=== PATIENT | female | born 1990 | race Caucasian/White ===

== ENCOUNTER → 2019-08-22 10:37 | Outpatient (CLI) | payer MEDICAID, SELFPAY ==
[2019-08-22 10:18] VITALS: BMI 22.8
[2019-08-22 12:20] LABS: Absolute Lymphocyte Count 1.85 X10^3/uL (0.83-4.51); Absolute Neutrophil Count 4.2 X10^3/uL (2.0-7.7); Basophil# 0.06 X10^3/uL; Basophil% 0.9 % (0-1); Eosinophil# 0.06 X10^3/uL; Eosinophils% 0.9 % (0-5); Hemoglobin 13.4 g/dL (12.0-15.0); Lymphocyte # 1.85 X10^3/ul (4.0); Lymphocyte % 27.7 % (19-41); Mean Corp Hgb Conc 31.9 g/dL (32-36); Mean Corpuscular Hgb 26.5 pg (27.0-32.0); Mean Corpuscular Volume 83.2 fL (81-99); Mean Platelet Vol. 10.5 fl (6.2-12.0); Monocyte# 0.46 X10^3/uL; Monocyte% 6.9 % (0-10); NRBC Flagged by Analyzer 0 % (0-5); Neutrophil # 4.21 X10^3/uL (2.7-7.7); Neutrophil % 63.2 % (47-70); Platelet Count 221 K/mm3 (150-450); RBC Distribution Width CV 13.2 % (11.6-14.6); RBC Distribution Width SD 40.2 fl (35.1-43.9); Red Blood Count 5.05 M/mm3 (4.2-5.4); White Blood Count 6.7 K/mm3 (4.4-11.0)
[2019-08-22 12:45] LABS: ALB/GLOB Ratio 1.1 RATIO (0.9-2.4); AST(SGOT) 8 U/L (15-37); Alanine Aminotransfer ALT/SGPT 17 U/L (13-56); Albumin, Serum 3.9 g/dL (3.2-5.0); Alkaline Phosphatase 51 U/L (45-117); Anion Gap 6 (5-15); BUN 10 mg/dL (7-18); BUN/Creat Ratio 11.8 RATIO (10-20); Calcium,Total 8.4 mg/dL (8.5-10.1); Chloride 110 mmol/L (98-107); Creatinine, Serum 0.85 mg/dL (0.55-1.02); EST Glomerular Filtration Rate 83 mL/min (>60); Est Glom Filt Rate - Afr Amer 100 mL/min (>60); Globulin 3.6 g/dL (2.2-4.2); Glucose 86 mg/dL (74-106); Protein, Total 7.5 g/dL (6.4-8.2); Sodium Level 139 mmol/L (136-145); T4 Free Direct 1.01 ng/dL (0.76-1.46); Thyroid Stim Hormone (TSH) 1.03 uIU/mL (0.358-3.74)
== END ==
PROVIDERS: PCP Internal Medicine; Visit Provider Internal Medicine
DX: F32.9 Major depressive disorder, single episode, unspecified (principal); F41.9 Anxiety disorder, unspecified
CPT/HCPCS: 36415; 80053; 84439; 84443; 85025

== ENCOUNTER → 2020-04-23 10:30 | Outpatient (CLI) | payer MEDICAID, SELFPAY ==
[2020-04-23 10:06] VITALS: BMI 22.8
[2020-04-23 10:33] LABS: Mucous, Urine 0 SEEN /hpf (<or=2+); White Blood Cells 0 SEEN /hpf (0-5)
[2020-04-23 12:18] LABS: Absolute Lymphocyte Count 2.39 X10^3/uL (0.83-4.51); Absolute Neutrophil Count 4.7 X10^3/uL (2.0-7.7); Basophil# 0.06 X10^3/uL; Basophil% 0.8 % (0-1); Eosinophil# 0.13 X10^3/uL; Eosinophils% 1.6 % (0-5); Hematocrit 40.5 % (37-47); Hemoglobin 12.5 g/dL (12.0-15.0); Lymphocyte # 2.39 X10^3/ul (4.0); Lymphocyte % 30.1 % (19-41); Mean Corp Hgb Conc 30.9 g/dL (32-36); Mean Corpuscular Hgb 26.2 pg (27.0-32.0); Mean Corpuscular Volume 84.9 fL (81-99); Mean Platelet Vol. 10.1 fl (6.2-12.0); Monocyte# 0.71 X10^3/uL; Monocyte% 8.9 % (0-10); NRBC Flagged by Analyzer 0 % (0-5); Neutrophil # 4.65 X10^3/uL (2.7-7.7); Neutrophil % 58.5 % (47-70); Platelet Count 285 K/mm3 (150-450); RBC Distribution Width CV 13.9 % (11.6-14.6); RBC Distribution Width SD 43.4 fl (35.1-43.9); Red Blood Count 4.77 M/mm3 (4.2-5.4)
[2020-04-23 12:25] LABS: Internal QC Validated? YES +Cl - CLEAR BKGD; Pregnancy, Serum, hCG Quali. NEGATIVE Negative
[2020-04-23 12:35] LABS: Color, Urine Yellow (Yellow); Glucose, Dipstick Normal (Normal); Ketone-Dipstick Negative (Negative); Leukocyte Esterase-Dipstick Negative /ul (Negative); Nitrite-Dipstick Negative (Negative); Occult Blood-Urine 250 /ul (Negative); Protein-Dipstick Negative (Negative); Urine Bilirubin Dipstick Negative (Negative); Urine Clarity Sl. Cloudy (Clear); Urine Urobilinogen Normal (Normal)
[2020-04-23 12:41] LABS: AST(SGOT) 10 U/L (15-37); Alanine Aminotransfer ALT/SGPT 18 U/L (13-56); Albumin, Serum 3.7 g/dL (3.2-5.0); Alkaline Phosphatase 69 U/L (45-117); Anion Gap 6 (5-15); BUN 15 mg/dL (7-18); BUN/Creat Ratio 18.5 RATIO (10-20); Calcium,Total 8.4 mg/dL (8.5-10.1); Chloride 108 mmol/L (98-107); Creatinine, Serum 0.81 mg/dL (0.55-1.02); EST Glomerular Filtration Rate 87 mL/min (>60); Est Glom Filt Rate - Afr Amer 105 mL/min (>60); Ferritin 14 ng/mL (8-252); Globulin 3.7 g/dL (2.2-4.2); Glucose 95 mg/dL (74-106); Iron 110 ug/dL (50-170); Iron Binding Capacity,Total 353 ug/dL (250-450); PERCENT IRON SATURATION 31.2 % (15.0-55.0); Potassium 4.1 mmol/L (3.5-5.1); Protein, Total 7.4 g/dL (6.4-8.2); Sodium Level 139 mmol/L (136-145); Thyroid Stim Hormone (TSH) 2.78 uIU/mL (0.358-3.74)
[2020-04-23 12:47] LABS: Bacteria 1+ /hpf (None Seen); Red Blood Cells-Urine 25-50 SEEN /hpf (0-5); Squamous Epithelial Cells - UA 0-5 SEEN /hpf (5-10)
== END ==
PROVIDERS: PCP Internal Medicine; Referring Provider Nurse Practitioner Family; Visit Provider Nurse Practitioner Family
DX: R10.9 Unspecified abdominal pain (principal); K25.9 Gastric ulcer, unspecified as acute or chronic, without hemorrhage or perforation; R53.83 Other fatigue; D64.9 Anemia, unspecified; R35.0 Frequency of micturition
CPT/HCPCS: 36415; 80053; 81001; 82728; 83540; 83550; 84443; 84703; 85025; 87086; 87088

== ENCOUNTER 2020-10-15 09:00 | Outpatient (RCR) | payer MEDICAID, SELFPAY ==
[2020-10-03 09:18] VITALS: BMI 22.9
--- NOTE | 2020-10-15 09:00 | BH.COMM ---
Communication Note - Communication with Client Communication Note: Met with patient to complete inital paperwork. No significant changes since pre-admission screening. Completed [place] Suicide screening. Low risk.
--- NOTE | 2020-10-15 09:00 | BH.COMM_ITS ---
Communication Note - Communication with Client Communication Note: Met with patient to complete inital paperwork. No sign ificant changes since pre-admission screening. Completed [place] Suicide screening. Low risk.
--- NOTE | 2020-10-15 09:05 | BH.SGPN.GN ---
Behaviors/Verbalizations/Mental Status: [] Eye contact is good. Motor activity is appropriate. Appearance is disheveled. Speech is Appropriate. Mood is anxious. Affect is congruent. Thoughts are linear and logical. No evidence of psychosis. Reviewed daily check in sheet and no reports of suicidal ideations or intent. Client Response/Progress/Benefit: [] Pt was attentive during group discussion and participated at times. Shared with the group that this is her first day in IOP. Reports that she entered the program to work on her anxiety and depression. Shared that a friend recently which has been difficult. 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 No progress noted as this was pt's first day. Will continue in IOP to prevent decompensation, improve functioning , increase healthy coping, and stabilize mood. Narrative Note: []
--- NOTE | 2020-10-15 10:10 | BH.SGPN.GN ---
Behaviors/Verbalizations/Mental Status: []]Eye contact is good. Motor activity is appropriate. Appearance is casual. Speech is Appropriate. Mood is anxious and depressed. Affect is constricted. Thoughts are linear and logical. No evidence of psychosis. Client Response/Progress/Benefit: []Pt mostly passive participant AEB pt only providing input when elicited by therapist, however willing to complete worksheet and appeared to listen to others. Pt appeared to connect with others during discussion about impact of unhealthy anger responses. Shared her emotions underlying anger include: apathy, crying, shut down, isolate and bottle it up. Pt stated she fears the consequences if she were to explode so she internalizes anger. Pt identified the following ways she expresses anger: low self-esteem, betrayal, trauma, and violence from others. Pt seemed to benefit from increased awareness of how unmanaged anger can impact self and others. Pt's first day. Pt to continue IOP to increase healthy coping skills, improve daily functioning and prevent decompensation. Narrative Note: []
--- NOTE | 2020-10-15 11:12 | BH.SGPN.GN ---
Behaviors/Verbalizations/Mental Status: []Client alert and oriented, casually dressed and groomed. Eye contact good. Motor activity appropriate. Speech within normal limits. Affect constricted. mood depressed and anxious. Thoughts linear, logical, no signs of hallucinations or delusions. Client Response/Progress/Benefit: []Pt was engaged throughout AEB contributing to group discussion and self-reflection. Pt contributed as the group provided examples of physical warning signs for anger and identified personal warning signs. These included: shaking, red ears, and digging her nails into her hands. Pt contributed as group brainstormed healthy coping skills for better managing anger which included: music, walking/exercise, opposite action, identifying distortions, DDD, thinking of the consequences, and meditation. Pt appeared to benefit from identifying different techniques to manage anger as well as gaining awareness of potential consequences of unmanaged anger. Pt selected using a weighted blanket and DDD as coping skills pt would like to try to regulate anger. Client?s first day of IOP tx. Will continue IOP to prevent decompensation, reduce anxiety, and increase knowledge of healthy coping skills. Narrative Note: []
--- NOTE | 2020-10-17 09:30 | BH.NA_ITS ---
Physical Data - Vital Signs Pulse Rate: 92 Blood Pressure: 140/92 - Height/Weight Height: 1.63 m Weight:: 68.039 kg Weight in Pounds: 150.0 lbs Current Medication Compliance - Medication Compliance Do you take your medication as prescribed?: Yes Nutritional History - Appetite Nutritional Instructions:: If client shows signs of a swallowing problem, weight change of 10 pounds or more in the last month, or is on a diabetic diet, the physician will review and request a dietitian consult, as appropriate. All unintentional weight loss will be referred to the physician for decision on need for dietitian consult. Describe your appetite:: Good Additional nutritional information:: Client states appetite somewhat increased and reports some weight gain. Functional Assessment - Sleep Pattern Describe any problems with sleeping: Client states for the last several months, she has been sleeping about 12 hours per day. 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 - Activities Motor Activity:: Functional Sensory/Communication Assess - Communication Problems Do you have difficulty understanding what people are saying?: No What is your primary language?: [place] Medical Problems/History - Genitourinary Conditions Genitourinary: Other (See comments) Comments:: kidney stone - Gastrointestinal Conditions Gastrointestinal: Other (See comments) Comments:: history of bleeding ulcer - Pain Assessment Do you have acute or chronic pain?: No - Family History Family History: Family History (Last Reviewed 10/03/20 @ 09:13 by Lucia Blanco) Mother Diabetes Surgical History - Surgical History Have you had any surgeries? If so, list type and date:: Yes - x3, tubal ligation Substance Abuse - Substance Abuse Please describe substance abuse in the last 30 days:: Client reports social alcohol use. Client states she smokes 3 cigarettes per day currently and states she has been a smoker since the age of 16. Client denies substance use. Client reports drinking many caffienated beverages daily. Mental Status Summary - Mental Status Significant Findings/Observations on Appearance and Mood:: Client is alert and oriented x 4. Client is wearing mask due to Covid19 pandemic. Client is casually groomed. Client makes good eye contact. Client's voice has normal rate and volume. Client appears mildly anxious. Client is cooperative with assessment. 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 Client denies delusions/hallucinations. Client denies SI. Suicide Assessment - Suicidal Ideation Are you currently or have you been suicidal in the past?: No - denies current SI Suicidal Intentional Rating Scale (SIRS): No suicidal thoughts (past or present) Physician Notification: If Active suicidal thoughts/Will not contract for safety is checked, contact physician and document in the Physician Notification section below. Past Psychiatric History - MH Treatment Hx Past Psychiatric Medications:: Lexapro in past and currently Age of first mental health symptoms: Client states she was diagnosed with anxiety and depression around the age of 16. Describe (age, circumstance, etc) any past hospitalizations: None. Current providers for mental health treatment (counselor, psychiatrist, shoe parts caser, etc.): None. Fall Risk Assessment - Age Age: Less than 60 - Mental Status Mental Status: Willing & able to ask for assistance when needed - Physical Status Physical Status: No problems - Impairments Impairments: None - Elimination Elimination: Continent AND independent - Gait or Balance Gait or Balance: Walks independently - Hx of Falls History of falls in the past 6 months: No known history - Medications/Substances Psychotropics:: Antidepressants Medications/substances used within the past 24 hours or ordered to administer: 1-2 of the medications/substances listed above - Total Score Total Points:: 1 RN Summary of Impressions - Impressions Recommendations: Include psychiatric and medical issues, treatment planning recommendations, and discharge planning needs. Impressions: Psychiatric Issues: major depressive disorder, recurrent, severe without psychosis; generalized anxiety disorder; borderline personality disorder - Level of Care How do the client's current symptoms and functional deficits support need for this level of care?: Client was referred to IOP by PCP for worsening anxiety and depression. Client states everytime she goes to PCP office, she had a breakdown in the office and is tearful. Client states for the last several months, she has felt increasingly depressed. Client reports sleeping about 12 hours per day for the last several months. Client states she feels she can't concentrate at work, that she needs to be taught the same things over and over. Client reports crying episodes, decreased motivation, ruminations, irritability, and isolation. Client denies SI. IOP will promote gains and prevent further decompensation while providing social support and skills training.
[2020-10-17 10:59] VITALS: BP 140/92; PULSE 92
--- NOTE | 2020-10-17 11:05 | BH.SGPN.GN ---
Behaviors/Verbalizations/Mental Status: []Client alert and oriented, neatly dressed and groomed. Eye contact good. Motor activity appropriate. Speech within normal limits. Affect constricted, mood dysthymic and anxious. Thoughts linear, logical, no signs of hallucinations or delusions. Client Response/Progress/Benefit: []Client responded well to session AEB taking notes and contributing when prompted. Client listened during psychoeducation on the change process and different emotions in each stage of change. Client identified a change client would like to make to improve mental health which was to ?actually put my mental health first? Client shared she wants to work on this ?because I never have and I always put others first.? Client reports belief she is currently in between the preparation and action stages as client has followed through with attending IOP and taking medications, but client has not yet begun using coping skills outside of IOP. Client identified personal barriers to change and reported she plans to practice calming skills to overcome barriers. Appeared to benefit from identifying what stage of change client is in and identifying strategies to overcome barriers. Will continue IOP tx to prevent decompensation, improve self-care, and increase knowledge of healthy coping skills. Narrative Note: []
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
--- NOTE | 2020-10-17 12:44 | BH.DR.ITP ---
Initial Treatment Plan - Patient Information Visit Information: ADMISSION DATE: EXPECTED LOS: 4-6 weeks - Problems/Symptoms Problem #1:: Depression, increased sleep,hopelessness, worthlessness, guilt, anhedonia Problem #2:: Anxiety Symptom:: Rumination,panic attacks, nightmares, flashbacks, avoidance
--- NOTE | 2020-10-18 09:10 | BH.SGPN.GN ---
Behaviors/Verbalizations/Mental Status: [] Eye contact is good. Motor activity is appropriate. Appearance is casual. Speech is Appropriate. Mood is depressed. Affect is flat. Thoughts are linear and logical. No evidence of psychosis. Reviewed daily check in sheet and no reports of suicidal ideations or intent. Client Response/Progress/Benefit: [] Pt was an active participant in group discussion. Emotion for today is positive. Accomplished tasks yesterday which she has been avoiding. Did not make phone call that she had set as a goal. Currently has a friend on the burn unit due to suicide attempt and is hesitant to reach out to him. More engaged in group discussions. Related to peer discussing feeling out of place at family events. Attentive. Progress noted. Benefited from group support, encouragement, and feedback. Will continue in IOP to prevent decompensation, increase healthy coping, and improve functioning. Narrative Note: []
--- NOTE | 2020-10-18 10:20 | BH.SGPN.GN ---
Behaviors/Verbalizations/Mental Status: []Client alert and oriented, neatly dressed and groomed. Eye contact good. Motor activity appropriate. Speech within normal limits. Affect constricted, mood depressed, anxious, irritable. Thoughts linear, logical, no signs of hallucinations or delusions. Client Response/Progress/Benefit: []Client active participant as shown by active listening and contributing to discussion. Client contributed to the discussion of self-care and the consequences of not practicing self-care. Client stated she struggles with self-care and reported ?as a parent you can?t put yourself first.? Client helped the group discuss benefits of self-care which included; improved mood, better mental health, and better relationships. Client participated in the discussion of the common myths about self-care. Client participated in the discussion on debunking of these myths. Client?s group challenged the myths: self-care should be fun, self-care is selfish, and self-care just personal hygiene. Client was receptive to challenging her perspective on the myths of self-care during small group. Client seemed to benefit from increased awareness of the importance of self-care and challenging common myths that prevent practicing self-care. Will continue IOP tx to prevent decompensation, increase knowledge of healthy coping skills, and improve daily functioning. Narrative Note: []
--- NOTE | 2020-10-18 10:41 | BH.MDN ---
Multi-Disciplinary Note - Note 45-min Individual Time Started:: 11:45 Date: 10/18/20 Purpose of session/treatment goals addressed:: Met with pt to develop treatment plan. Pt also had panic attack during 3rd group which we processed. Eye Contact:: Fair Motor Activity:: Restless Appearance:: Casual Speech:: Appropriate Mood:: Anxious Affect:: Congruent Thoughts:: Linear, Logical, No evidence of hallucinations/delusions noted Staff Interventions:: Utilized ND techniques to elicit change behaviors. Began to develop treatment plan. Provided education on cognitive distortions and mistaken beliefs. Given homework to complete thought record. Client Response:: Pt was tearful stating that she struggled with group activity which involved trying to focus on several tasks at once. States I failed ... I can't concentrate on several things at once. She processed the event and through prompting was able to identify her thoughts which led to panic. Currently limited coping skills to utilize to minimize impact of thoughts. Has left several events and jobs in the past to avoid anxiety and failing. I've quit things where I didn't feel like I was the best. This has impacted her relationships and the ability to have consistent employment. When discussing goals she reports that she wants to decrease the frequency of panic attacks and feeling of being overwhelmed. Also stating that she feels like she is on an emotional rollercoaster which she wants to stop. Open to education on CBT, cognitive distortions, and mistaken beliefs. Risks/Concerns:: Denies SI, plan, or intent. No risks of concerns noted. Progress Toward Goals/Plan:: Limited progress noted today however appears to have increased insight into the impact of her thinking on her mood. Previously believed she had no control over her responses. Long history of avoiding or isolating when confronted with anything that is anxiety provoking or causes distress. Unrealistic expectations regarding never failing or making a mistake. Also reported poor communication with current fiance which often leads to us breaking up at least once every couple months. Plan is to continue in IOP to increase healthy coping and prevent decompensation. Time Stopped:: 12:30
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
--- NOTE | 2020-10-18 10:41 | BH.MTP ---
Master Treatment Plan - Patient Information Program Physician:: Sandra Landin Primary Therapist:: Del Sibley - Psychiatric Diagnoses Psychiatric Diagnoses:: Major Depressive Disorder, recurrent, severe, w/o psychosis F33.2 Diagnosis Code(s):: F33.2 - Estimated LOS Estimated LOS (in weeks):: 6 Problem/Goal #1 - Problem/Goal #1 Stated Goal:: Client will decrease depressive symptoms, anger/irritability, hopelessness, and anhedonia through Intensive Outpatient Program. Will show a decrease in depression scores on the DSM5 cross-cutting scales. Description of Barriers: Inconsistent attendance, limited motivation, guarded Functional Impact: Pervasive depression, anhedonia, and hopelessness has caused significant impract on pt's relationships and overall functinoing (pt sleeps a majority of the day to cope) - Objectives Objective #1 Stated Objective: Client will identify and replace 2-3 negative thinking patterns that mediate feelings of hopelessness and helplessness. Will complete a thought record and practive reframing thoughts. Interventions: Through groups and individual therapy, pt. will be provided with education on cognitive distortions, mistaken beliefs, and identifying and combating negative self-talk. Therapist will help pt. explore connection between thoughts, feelings, and actions. Discharge Criteria: Pt. will be able to identify 2-3 negative thinking patterns and be able to effectively stop, challenge, or cope with those negative thoughts. Target Date: 11/29/20 Review Date: 11/15/20 Problem/Goal #2 - Problem/Goal #2 Stated Goal:: Client will reduce overall frequency, intensity, and duration of the anxiety so that daily functioning is not impaired. Will show a decrease in anxiety on the DSM5 cross-cutting scales. Description of Barriers: Inconsistent attendance, limited motivation, guarded Functional Impact: Anxiety has impacted pt in social situations as well as at work. Reports leaving many jobs due to anxiety. - Objectives Objective #1 Stated Objective: Client will learn and implement 2-3 calming skills to reduce overall anxiety and manage anxiety symptoms. Interventions: Through individual and group counseling pt. will be provided with education on anxiety and effective coping skills. Will explore more in-depth with pt. cause and triggers to anxiety as well as obstacles to overcoming anxiety Discharge Criteria: Client will have achieved this goal when can verbalize at least 2 calming skills and implement those skills on a consistent basis. Target Date: 11/29/20 Review Date: 11/15/20
--- NOTE | 2020-10-22 09:30 | BH.COMM ---
Communication Note - Communication with Client Communication Note: Pt did not show for IOP this AM. Reached out and left message.
--- NOTE | 2020-10-24 09:05 | BH.SGPN.GN ---
Behaviors/Verbalizations/Mental Status: []Client alert and oriented, neatly dressed and groomed. Eye contact fair. Motor activity appropriate. Speech within normal limits. Affect constricted, mood anxious and agitated. Thoughts linear, logical, no signs of hallucinations or delusions. Reviewed client?s symptom tracker, no risk for suicidal ideation, plan, or intent as of 10/24/20 Client Response/Progress/Benefit: []Client responded well to session, receptive to encouragement and feedback. Client reports feeling anxious this morning and shared that an activity in group last week really set me back. Client stated her sleep was impacted and I beat myself up because it was over something so small. Field Crop Harvest Contractor encouraged client to use self-compassion and reflect on the positive that she returned to IOP despite anxiety. Client shared several positives including buying a journal, driving in the snow, and scheduling a nail appointment for self-care. Client reports we know how I feel about self-care so this is a significant step for client. Appeared to benefit from group support and reflecting on resiliency traits. Will continue IOP tx to prevent decompensation, improve mood stability, and reduce negative thinking that reinforces anxiety. Narrative Note: []
--- NOTE | 2020-10-24 10:15 | BH.SGPN.GN ---
Behaviors/Verbalizations/Mental Status: [] Eye contact is good. Motor activity is appropriate. Appearance is casual. Speech is Appropriate. Mood is anxious. Affect is congruent. Thoughts are linear and logical. No evidence of psychosis. Client Response/Progress/Benefit: [] Pt was an active participant in group discussion and activity. Attentive during psychoeducation and discussion on famous people who have overcome set-backs and failures. Participated with peers in coming up with descriptions of failure which included; messing up, not accomplishing a goal, making the wrong choice, and giving up. Group discussed the impact of fear of failure stating that it can lead to; inaction, increased anxiety, self-fulfilling prophecy, and it can keep them from reaching goals or even trying. Pt benefited from group as evidenced by increased insight and awareness of the impact of fear of failure on mood and actions. Will continue in IOP to increase healthy coping, decrease depressive symptoms, and improve functioning. Narrative Note: []
--- NOTE | 2020-10-24 16:31 | BH.MDN ---
Multi-Disciplinary Note - Note 30-min Individual Time Started:: 11:15 Date: 10/24/20 Purpose of session/treatment goals addressed:: Pt reported depressive epsiode which lasted over the weekend and resulted in missing IOP on 09/2820. Adressed goals 1 and 2 Eye Contact:: Fair Motor Activity:: Restless Appearance:: Casual Speech:: Appropriate Mood:: Anxious, Depressed Affect:: Congruent Thoughts:: Linear, Logical, No evidence of hallucinations/delusions noted Staff Interventions:: Processed emotions and events this past week. Provided education on CBT techniques. Client Response:: Pt reports that she had been significantly depressed since 10/18/20. States that she missed IOP on 10/22/20 because I slept all day. Depressed, drained, and feels that life is pushing her down. She was able to write down some of her thoughts which we reviewed. Ruminating on past events which leads to being overwhelmed emotionally ultimately leading to psychosomatic symptoms and fatigue. Feels that she has little control over her emotions stating its like this from the time I get up. Reports that she woke up feeling fine on Thursday. She did discuss how her previous trauma continues to impact her and admits she ruminates on this at times. Never processed past traumas. Completed worksheet in which she identifed stressors and thoughts which impact her. Currently she is optimistic and motivated. Has plans to follow through with self-care tomorrow. Risks/Concerns:: No risks or concerns noted. Progress Toward Goals/Plan:: Progress noted per pt report. Depressive episode which last several days over the weekend. She spend majority of the time sleepin and ruminating on past events. Does not currently have consistent healthy coping skills to utilize during these episodes. Feels that she has limited control over her thoughts and emotions. She is currently feeling less depressed and motivated. SHe is stepping outside her comfort zone and utilizing some self-care tomorrow which she is excited about. Plan is to continue with IOP to prevent decompensation, increase healthy coping, and improve functioning. Time Stopped:: 11:45
--- NOTE | 2020-10-25 09:10 | BH.SGPN.GN ---
Behaviors/Verbalizations/Mental Status: [] Eye contact is good. Motor activity is appropriate. Appearance is casual. Speech is Appropriate. Mood is euthymic. Affect is full. Thoughts are linear and logical. No evidence of psychosis. No suicidal thoughts reported. Client Response/Progress/Benefit: [] Pt was an active participant in group discussion. Daily symptom tracker notes 2/5 for depression and anxiety. No anger reported. This is improvement. Emotion for today is happy. Shared that she completed self-care yesterday and showed group her nails. Also reports that she completed tasks and overall feels proud of herself. She discussed hoping to have a sober New Years Connie with her sofía. She discussed some stressors and conflicts with sofía however overall is optimistic about their relationship. Progress noted per pt report. Benefited from group support, encouragement, and feedback. Will continue in IOP to prevent decompensation, stabilize mood, and improve functioning. Narrative Note: []
--- NOTE | 2020-10-25 11:18 | BH.SGPN.GN ---
Behaviors/Verbalizations/Mental Status: []Client alert and oriented, neatly dressed and groomed. Eye contact good. Motor activity appropriate. Speech within normal limits. Affect congruent, mood euthymic. Thoughts linear, logical, no signs of hallucinations or delusions. Client Response/Progress/Benefit: []Client an active participant throughout AEB contributing to discussion, taking notes, and providing supportive feedback. Client participated in group activity highlighting the various barriers to effectively utilizing supports and strategies the group used. Client participated in discussion of the four types of support (emotion, tangible, informational, and social) and gave examples for all types. Client reports wanting to work on increased emotional support and client plans to do this by being more vulnerable during IOP group and individual sessions. Client seemed to benefit from identifying the type of support she wants to improve. Progress noted by client's increased engagement in group sessions. Client to continue in IOP tx to prevent decompensation, improve emotional regulation skills, and improve daily functioning. Narrative Note: []
--- NOTE | 2020-10-25 13:33 | BH.MDN_ITS ---
Multi-Disciplinary Note - Note 45-min Individual Time Started:: 10:15 Date: 10/25/20 Purpose of session/treatment goals addressed:: Therapist running 2nd group notified me that pt was crying and visibly upset in group in response to a text she recieved. Took pt out of group to process. Addressed treatment goals 1 and 2 Eye Contact:: Fair Motor Activity:: Appropriate Appearance:: Casual Speech:: Appropriate Mood:: Irritable, Depressed Affect:: Flat Thoughts:: Linear, Logical, No evidence of hallucinations/delusions noted Staff Interventions:: Processed events, thoughts, and emotions. Education on communication skills. Client Response:: Pt was tearful for first part of the session. She discussed the events that occured and the texts between her and her fiance which increased depression, anxiety, and anger. Talked at length regarding thier poor communication and how it impacts her mood and thier relationship. Insight into her role in the struggles in thier communication and the negative patterns they have developed. Able to empathsize with her fiance's response. Open to problem- solving and utilizing this event to learn and grow. Risks/Concerns:: No risks or concerns noted. Progress Toward Goals/Plan:: Progress noted this week. She completed self-care skills yesterday, completed homework assignments, and is attemtping to utilize skills. Pt reports that she was happy this AM until text from fiance which lead to ruminations, fear, and depression. Benefited from processing events and thoughts which help decrease impact of emotions. Still early in learning how to do this by herself. Insight and awareness of her role in poor communication and has some strategies to improve. Will continue in IOP to prevent decompensation, stablize mood, and increase healthy coping. Time Stopped:: 11:00
--- NOTE | 2020-10-29 15:16 | BH.COMM ---
Communication Note - Communication with Client Communication Note: Pt did not show for IOP this AM. Called to leave message however VM was full. Pt was not in any distress during last appointment not any noted concern. She missed last Thursday's IOP as well. Will attempt to follow up again tomorrow.
--- NOTE | 2020-10-31 09:20 | BH.COMM ---
Communication Note - Communication with Client Communication Note: Pt did not show for IOP again today. No call or no show. This is her 2nd time this week. Attempted to contact and leave VM however pt's VM is full and not accepting messages. If pt doesn't respond by tomorrow the plan would be to discharge. She denied SI throughout the program. No imminent danger noted which would require contacting police for wellness check or emergency contact.
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
== END 2020-10-25 23:59 ==
LOC: BHIOP 09:00
PROVIDERS: PCP Nurse Practitioner Family; Referring Provider Psychiatry & Neurology Psychiatry; Visit Provider Psychiatry & Neurology Psychiatry
DX: F33.2 Major depressive disorder, recurrent severe without psychotic features (principal); F41.8 Other specified anxiety disorders; F60.3 Borderline personality disorder; K21.9 Gastro-esophageal reflux disease without esophagitis; Z79.899 Other long term (current) drug therapy; F17.210 Nicotine dependence, cigarettes, uncomplicated
CPT/HCPCS: 90792; H0035; H2012; H2020; 90834

== ENCOUNTER 2020-11-02 09:00 | Outpatient (RCR) | payer MEDICAID, SELFPAY ==
[2020-10-03 09:18] VITALS: BMI 22.9
[2020-10-26 00:41] VITALS: BP 140/92; PULSE 92
--- NOTE | 2020-11-02 09:12 | BH.MDN ---
Multi-Disciplinary Note - Note 30-min Individual Time Started:: 09:00 Date: 11/02/20 Purpose of session/treatment goals addressed:: Pt showed up to [facility] unannouced. She had not showed for IOP since 10/25/20 and had missed 3 IOP sessions this week. Due to lack of attendance the plan was going to be to discharge this afternoon. Eye Contact:: Good Motor Activity:: Appropriate Appearance:: Casual Speech:: Appropriate Mood:: Euthymic Affect:: Congruent Thoughts:: Linear, Logical, No evidence of hallucinations/delusions noted Staff Interventions:: praised pt for continued use of skills outside of IOP. Meron reviewed CBT techniques and thought record. Client Response:: Pt apologized for the lack of communication stating I literally slept all week. States that she slept from 6:45a till 745p yesterday and then went to work. States that she has been struggling with sleep all week. As soon as a sit down I fall asleep. We discussed her mood this week and she denies any significant distress, depression, or anxiety. She utilized some communication and thought reframing skills from [facility] and notes significant improvement in her mood and relationships. Seems that increased sleep is not related primarily to depression as orginally thought. We discussed her sleep routine and caffience consumption (which is significant). Strongly recommended that she call her PCP as a sleep study might be needed to further evaluate. She wants to continue with IOP I'm really getting a lot from these classes. She contines to utilizer her journal to write down events, thoughts, and emotions in increase awareness. States that her holiday weekend went really well stating that her and her fiance are communicating more effectively with les conflict. Proud that she was able to utilize a negative or arguments with fiance to learn and grow. Risks/Concerns:: no risks or concerns noted. Progress Toward Goals/Plan:: Progress noted per pt report. Primary obstacle at this point is fatigue and excessive sleep which does not appear to be caused exclusively by depression. She works 3rd shift so her sleep schedule has been disrupted for the past 4 months. She also admits to excessive caffiene use. Encouraged pt to speak with PCP to discuss sleep issues for further evaluation and possible sleep study. Plan is to continue in IOP as she reports significant progress since starting which have reduced anxiety and depression. Continues to have panic attacks however less frequency and intensity. Time Stopped:: 09:20
--- NOTE | 2020-11-06 09:10 | BH.SGPN.GN ---
Behaviors/Verbalizations/Mental Status: [] Eye contact is good. Motor activity is appropriate. Appearance is casual. Speech is Appropriate. Mood is anxious. Affect is congruent. Thoughts are linear and logical. No evidence of psychosis. Reviewed daily check in sheet and no reports of suicidal ideations or intent. Client Response/Progress/Benefit: [] Pt was an active participant in group discussions on empathy and vulnerability in mental health. Daily sympton tracker notes 3/5 for anxiety and depression and 4/5 for irritability. Shared that my weekend went well. She discussed her sleep schedule being entirely off. States that she constantly feels tired and actually slept for 24 hours over the weekend. He emotions are stable however notes that she is not awake that much. Brief discussion on strategies to get sleep schedule back to normal. Enocuraged to speak with PCP. Benefited education and insight on group discussion topics as well as support from peers. Progress is limited due mainly to excessive sleep. Will continue in IOP to increase healthy coping skills and improve functioning. Narrative Note: []
--- NOTE | 2020-11-06 10:13 | BH.SGPN.GN ---
Behaviors/Verbalizations/Mental Status: []Alert and oriented. Casually dressed and groomed. Eye contact good. Motor activity appropriate. Speech within normal limits. Mood euthymic but tired, affect constricted. Thoughts linear, logical, no signs of hallucinations or delusions. Client Response/Progress/Benefit: []Client engaged participant AEB client taking notes, but client was mostly quiet. Group discussed healthy versus unhealthy coping skills and what contributes to people using unhealthy skills. The group stated unhealthy coping skills tend to be easy, habitual, and temporary relief. Client gave the example of napping and isolation as forms of unhealthy coping skills. Client participated in the group activity and connected that a healthy foundation of coping skills is composed of healthy internal and external coping skills. Client seemed to benefit from increased awareness of the importance of increasing healthy coping skills and consequences of utilizing unhealthy coping skills. Progress noted as client reports less depressive symptoms. Will continue IOP tx to further reduce anxiety, improve mood stability, and improve self-care. Narrative Note: []
--- NOTE | 2020-11-06 11:13 | BH.SGPN.GN ---
Behaviors/Verbalizations/Mental Status: []Alert and oriented. Casually dressed and groomed. Eye contact fair. Motor activity appropriate. Speech within normal limits. Mood euthymic but fatigued, affect constricted. Thoughts linear, logical, no signs of hallucinations or delusions. Client Response/Progress/Benefit: []Client responded well to session, actively listening and taking notes. Group discussed the different categories of coping skills which included distraction, emotional release, grounding, self-love, and thought challenging. Client participated in creating a coping skills ?menu? from the five categories of coping skills. Client's coping skill menu included: painting, journaling, deep breathing, taking a bath, and using a thought log. Progress noted in client's reduced anxiety and self-report of applying coping skills outside of IOP. Appeared to benefit from increasing repertoire of healthy coping skills. Will continue tx to improve mood stability, increase self-care, and reduce intensity of symptoms. Narrative Note: []
--- NOTE | 2020-11-07 10:05 | BH.SGPN.GN ---
Behaviors/Verbalizations/Mental Status: [] Eye contact is good. Motor activity is appropriate. Appearance is casual. Speech is Appropriate. Mood is anxious. Affect is congruent. Thoughts are linear and logical. No evidence of psychosis. Client Response/Progress/Benefit: [] Pt was an active participant in group discussion and was attentive during psychoeducation. Provided input on the quote of the day. Group was primarily educational and introduced and gave examples of the 10 cognitive distortions. Pt provided some examples of personal experiences for certain cognitive distortions. Benefited from education and increased awareness of cognitive distortions and role that they play in negative thoughts and emotions. Will continue in IOP to maintain gains. Narrative Note: []
--- NOTE | 2020-11-07 11:58 | BH.MDN ---
Multi-Disciplinary Note - Note 45-min Individual Time Started:: 09:15 Date: 11/07/20 Purpose of session/treatment goals addressed:: Addressed treatment plan goals 1 and 2. Eye Contact:: Good Motor Activity:: Appropriate Appearance:: Casual Speech:: Appropriate Mood:: Euthymic Affect:: Full Thoughts:: Linear, Logical, No evidence of hallucinations/delusions noted Staff Interventions:: Provided psychoeducation on mistaken beleifs and thier role in negative thoughts. Provided educational handout. Client Response:: Pt participated in discussion on mistaken beliefs. Reviewed questionaire that pt completed last week. According to questionaire pt has mistaken beliefs that her self-worth is dependent on external variables like being loved, being approved of, and being perfect. Also shows fear of being trusted or she will lose control. She agreed that she is a people-pleaser and often focuses on making others happy. Able to identify how this has benefits and drawbacks. Discussed how the drawbacks impact depression and anxiety. Insight into how these beliefs impact her thoughts and actions. Continues to tracks thoughts and journal which has been beneficial. Disucssed decreased intensity of anxiety at work. She continues to sleep an excessive amount which is impacting her functioning. Has not made appt for sleep schedule yet. Plan to discuss with psychiatrist this afternoon. Risks/Concerns:: No risks or concerns noted. Progress Toward Goals/Plan:: Pt has been consistent and engaged in IOP this week. Reports i learn something new everyday I'm here. Anxity and depression remain however with less frequency, intensity, and duration. Improved functioning. Medication compliant. Utilizing skills. Increased awareness. Pt has been in the program for close to 4 weeks. Will continue in IOP to maintain gains. We discussed discharge and pt was given a list of therapists in the area to review. We will discuss further next week. Time Stopped:: 10:00
--- NOTE | 2020-11-07 12:17 | PCM.BH.PN_ITS ---
Progress Note Progress Note: History of Present Illness/Interim History: [] The patient is a 30-year-old single female who is seen in follow-up at the [facility] behavioral health IOP program. I last saw the patient 3 weeks ago and at that time the Wellbutrin SR was increased to 100 mg p.o. twice a day. The patient has been taking this for the past several weeks and feels like her mood is a little less depressed depressed. She still feels exhausted all the time and she looked online for what could be causing her exhaustion and the patient feels that she has attention deficit disorder. Patient is using a lot of caffeine including 5-hour energy drinks in order to stay awake at work. When she does sleep she can sleep for over 12 hours a day. She is still working the third shift but is done this for 4 years and does not feel that that is the problem. She also says she has gained about 30 pounds in the past 6 months and feels hungry all all the time. She still feels that she does not do enough with her children but she feels this is due to her fatigue. She does still feel hopeless and worthless and guilty. But she feels like this is because she is tired all the time and not because she is depressed. She denies suicidal or homicidal ideation. She denies hallucinations or delusions or symptoms of nick. She has always been a worrier and does ruminate negatively. Current Psychiatric Medications: [] Wellbutrin SR 100 mg p.o. twice daily (x2- 1/2 weeks); BuSpar 10 mg p.o. 3 times a day; Lexapro 20 mg p.o. daily (x5+ months). Mental Status Examination: [] Patient is a 30-year-old female who appears normal for stated age and is wearing a mask due to the pandemic. She is casually dressed and groomed with good hygiene. She is cooperative and pleasant during the interview. Eye contact is good and speech is normal rate and rhythm and fluent with no pressure. Mood is depressed. Affect is constricted. Thought process is goal-directed and organized. Thought content: There is no evidence of suicidal or homicidal ideation. No evidence of hallucinations or delusions. The patient is worried that there is something wrong with her causing her to be extremely tired and falling asleep despite using caffeine and energy drinks according to the patient. Judgment is limited. Impulsivity is moderate. Insight is limited. Diagnoses: [] [place] I: [] Major depressive disorder, recurrent, severe without psychosis; generalized anxiety disorder; rule out hypersomnia [place] II: [] Borderline personality disorder [place] III: [] Negative [place] IV:[]] Work, primary support issues Plan: [] Patient will continue the IOP program at [facility] as the structure, support, education, individual and group therapy will hopefully prevent worsening of the patient's symptoms which might require hospitalization. The patient felt safe during the interview and if it anytime she does not feel safe she will let us know or go to the emergency room. The risks, options, possible complications and side effects of the medications were discussed with the patient again and she understands and accepts these. The patient agrees to increase her Wellbutrin SR to 150 mg p.o. twice daily and a prescription was sent in for this. In addition she will decrease her Lexapro to 10 mg p.o. daily as this was started about 5 months ago when the patient says her increased fatigue and sleeping and weight gain began. In addition labs were ordered on the patient including a CBC, complete metabolic panel, and TSH. Labs were also reviewed from April 23, 2020 and these were all essentially negative but we will recheck them since it has been about 7 months since she had blood work done. Patient is concerned she could have a bleeding ulcer.
--- NOTE | 2020-11-09 09:05 | BH.SGPN.GN ---
Behaviors/Verbalizations/Mental Status: [] Eye contact is good. Motor activity is appropriate. Appearance is casual. Speech is Appropriate. Mood is anxious. Affect is congruent. Thoughts are linear and logical. No evidence of psychosis. Reviewed daily check in sheet and no reports of suicidal ideations or intent. Client Response/Progress/Benefit: [] Pt participated at times during group discussion. Attentive. Emotion for today is anxious. Daily symptom tracker notes 4/5 for anger and 3/5 for depression. Shared that she tried to decrease her caffeine intake at the request of her psychiatrist due to sleep issues. States It did not go well Had to leave work because I was so tired. Does not believe that she can function w/o caffeine. Continues to verbalize depression and anxiety. Mental health win is that she is going to visit her friend that has been in the hospital due to to suicide attempt as he was recently discharged. She did not elaborate much except to say that she was looking forward to talking with him. Also looked forwards to watching NFL playoffs this weekend. No progress noted. Sleep continues to be disrupted. Not motivated to change her sleep schedule or caffeine intake at this time. Limited benefit from group. Will continue in IOP to prevent decompensation, increase health coping, and stabilize mood. Narrative Note: []
--- NOTE | 2020-11-09 10:10 | BH.SGPN.GN ---
Behaviors/Verbalizations/Mental Status: [] Client Response/Progress/Benefit: [] Narrative Note: []
--- NOTE | 2020-11-09 11:10 | BH.SGPN.GN ---
Behaviors/Verbalizations/Mental Status: []Client alert and oriented, casually dressed and groomed. Eye contact good. Motor activity appropriate. Speech within normal limits. Affect congruent, mood euthymic and anxious. Thoughts linear, logical, no signs of hallucinations or delusions. Client Response/Progress/Benefit: []Client receptive of session, engaged throughout AEB client participating in discussion and taking notes. Client completed a worksheet where client identified personal pitfalls impacting mental health progress. Client?s pitfalls included: returning to toxic things, negative self-talk, isolation, personalizing, and making excuses. Attentive and contributing during group brainstorm of strategies to overcome pitfalls. Client stated she will work on overcoming her pitfalls by using opposite action. Benefited from identifying personal pitfalls and strategies to overcome these pitfalls. Progress notes in client?s reduced avoidance behaviors and anxiety. Will continue IOP tx to prevent decompensation, improve mood stability, and improve daily functioning. Narrative Note: []
--- NOTE | 2020-11-13 10:15 | BH.SGPN.GN ---
Behaviors/Verbalizations/Mental Status: []Eye contact is fair. Alert and oriented. Motor activity is appropriate. Appearance is casual. grooming is appropriate. Speech is Appropriate. Mood is anxious. Affect is constricted. Thoughts are linear and logical. No evidence of psychosis or hallucinations. Client Response/Progress/Benefit: []Pt semi-engaged participant AEB pt providing limited contributions during session however appeared to listen to others and engaged in activity. Pt assisted group with identifying consequences of not expressing self in a healthy way which included: resentment, bitterness, seeking constant distractions, lashing out, displacement, lose support, and mental health negatively impacted. Pt connected with others that sometimes unmanaged emotions will lead her to shut down, which she recognizes doesn't help get anything solved. Pt seemed to benefit from increased awareness of the impact unmanaged emotions can have on mental health. Pt is to continue IOP to increase consistent use of healthy coping, challenge negative thoughts and prevent decompensation. Narrative Note: []
--- NOTE | 2020-11-13 11:10 | BH.SGPN.GN ---
Behaviors/Verbalizations/Mental Status: []Client alert and oriented, casually dressed and groomed. Eye contact fair-on her phone at times. Motor activity appropriate. Speech within normal limits. Affect constricted, mood anxious. Thoughts linear, logical, no signs of hallucinations or delusions. Client Response/Progress/Benefit: []Client engaged in session AEB client listening attentively to peers and providing input. Attentive during psychoeducation on 4 zones of regulation. Client able to identify feelings and behaviors for each zone. Group identified coping skills one can use to support self in each zone which included: journaling, opposite action, thought challenging, exercise, listening to music, deep breathing, progressive muscle relaxation, and reaching out to supports. Client stated belief that she is in the yellow zone today because she feels ?very anxious? about a phone call that client has been putting off. Client reports she can benefit from opposite action of making the phone call and then taking a nap. Benefited from increased education on zones of regulation or stages of alertness for emotions and healthy coping skills to use for each zone. Will continue IOP tx to prevent decompensation, improve daily functioning, and increase application of coping skills. Narrative Note: []
--- NOTE | 2020-11-14 15:41 | BH.MTP_ITS ---
Treatment Plan Review Date of Admission:: 10/15/20 Date of Treatment Plan Review:: 11/14/20 Admitting Diagnoses:: Major Depressive Disorder, F33.2 Current Diagnoses:: Major Depressive Disorder, F33.2 Patient's Response to Treatment:: Responds well to treatment when she is present. Inconsistent attendance mainly related to struggles with sleep. Pt sleeps excessively often missing group. Reports I get a lot from these classess. Takes notes and has begun to utilize an thought journal. She reports increased communication and decreased conflict with support. Increased communications skills and decreased panic and anxiety per pt. Despite pt's self- reports of decreased symptoms the scores of current DSM scales when compared to admission scores indicates a 37.5% increase in symptoms. Status of Current Problems and Symptoms: Continues to struggle with depression, low energy, and lack of motivation. Also notes anxieity as well. Excessive guilt and ruminations over excessive sleep and how that impacts her supports. Problem #1 Problem Name:: Will decrease depressive symptoms, anger/irritability, hopelessness, etc Status of Goals:: Pt is able to identify negative thinking patterns however has not yet found consistent skills to help reduce or challenge thoughts. She is currently in the awareness phase. Team Recommendations:: Will continue with current plan. Will enocurage increased attendance in the program Problem #2 Problem Name:: Reduce overall frequency, intensity, and duration of the anxiety Status of Goals:: Pt primary coping skills appears to be sleep. She reports improvement in anxiety and is able to identify 2 calming and coping skills, however again relies heaviliy on unhealthy skills of sleeping when overhwelmed Team Recommendations:: Will continue with current plan. Will encourage increased attendance.
--- NOTE | 2020-11-22 09:08 | BH.SGPN.GN ---
Behaviors/Verbalizations/Mental Status: []Client alert and oriented, neatly dressed and groomed. Eye contact good. Motor activity appropriate. Speech within normal limits. Affect constricted, mood euthymic and irritable. Thoughts linear, logical, no signs of hallucinations or delusions. Reviewed client?s symptom tracker, no risk for suicidal ideation, plan, or intent as of 11/22/20 Client Response/Progress/Benefit: []Client responded well to session, attentive and contributing to discussion. Client reports feeling hopeful this morning as client is starting to feel better after a few challenging days. Client shared her mood often becomes more depressed and irritable before her period, so client was struggling with managing her emotions because of this. Client had several mental health wins today including practicing self-care, scheduling her sleep study, and practicing opposite action. Client's stressor today is that her ex- is throwing away all the help I gave him. Client receptive to discussion on boundaries and prioritizing self-care. Appeared to benefit from connecting with peers and reflecting on her positives. Client's attendance continues to be variable due to sleep issues, but client is highly engaged when in attendance. Will continue IOP tx to promote mood stability and improve daily functioning. Narrative Note: []
--- NOTE | 2020-11-22 10:10 | BH.SGPN.GN ---
Behaviors/Verbalizations/Mental Status: []Client alert and oriented, casually dressed and appropriately groomed. Eye contact good. Motor activity appropriate. Speech within normal limits. Affect constricted, mood anxious, Thoughts linear, logical, no signs of hallucinations or delusions. Client Response/Progress/Benefit: []Client receptive of session, attentive and taking notes. Client agreed with the session?s quote and stated ?communication with my boyfriend sucks.? Group discussed benefits of healthy communication on mental health which included: allows others to know what we are feeling, get our needs met, prevent avoidable problems, improve relationships, and help establish healthy boundaries. Client identified her personal barriers as bringing up the past and shutting others down when communicating. Remained attentive during psychoeducation on the four communication styles. Client self-reports identifying most with the aggressive communication style and wanting to become more assertive in communication. Benefited from increased insight regarding own communication style and impacts this has on overall mental health. Progress noted as client understood the impact that aggressive communication may have on her relationship with her boyfriend. Client will continue IOP to improve healthy coping skills and ability to thought challenge as well as stabilize mood. Narrative Note: []
--- NOTE | 2020-11-22 11:20 | BH.SGPN.GN ---
Behaviors/Verbalizations/Mental Status: []Client alert and oriented, casually dressed and appropriately groomed. Eye contact good. Motor activity appropriate. Speech WNL. Affect constricted, mood anxious. Thoughts linear, logical, no signs of hallucinations or delusions. Client Response/Progress/Benefit: []Client responded well to session AEB client listening attentively to others and providing some input during group discussion on the pay offs and costs of the different communication styles. Client stated she most often uses aggressive style of communication but will become passive if someone else becomes aggressive. Reported she recognizes this is unhealthy because not much gets resolved. Attentive during psychoeducation on assertiveness strategies to improve communication, and client selected an assertiveness skill to practice. Client selected the skill negotiate with her is what she wants to work on. Stated she wants to work on finding a middle ground with him. Will continue IOP tx to improve emotional regulation, challenge distorted thoughts and prevent decompensation. Narrative Note: []
--- NOTE | 2020-11-23 11:18 | BH.MDN ---
Multi-Disciplinary Note - Note 45-min Individual Time Started:: 09:15 Date: 11/23/20 Purpose of session/treatment goals addressed:: Reviewed current symptoms and progress in IOP. Addressed treatment goals 1 and 2 Eye Contact:: Good Motor Activity:: Appropriate Appearance:: Disheveled Speech:: Appropriate Mood:: Euthymic Affect:: Flat Thoughts:: Linear, Logical, No evidence of hallucinations/delusions noted Staff Interventions:: Utilized [place] to elicit change behaviors. Processed thought record and assisted pt in reframing thoughts. Client Response:: Pt presented today reporting that she is very tired. COntinues to sleep excessively and utilize significant amounts of caffiene to stay awake. Reports that she drank a 5-hour energy, a mt dew, and a large coffee at 7pm prior to work and then had trouble staying awake at 2am (7 hours later). Reports that she will take naps during her breaks at work. Met with her PCP and a sleep study was ordered. Reports that she stopped taking her Lexapro as she felt it was causing her weight gain. Overall she reports minimal depression and anxiety. Had 1st panic attacks in awhile recently. Improved relationship with fiance and they have started to plan a wedding. Things are going weirdly well. Communicating more effectively. She reports that she has noticed depresion and anxiety around her period which she discused in group yesterday and got feedback and suggestions which she plans to implement. Utilizing skills learned. We talked about aftercare and discharge. She has indentified a therapist to follow up with and plans on making appointment. Risks/Concerns:: No risks or concerns noted. Progress Toward Goals/Plan:: Progress noted. Managing her emotions more effectively. Decreased conflict and improved communication with relationships. Able to identify calming skills and negative thinking patterns. Utilizing skills and thought reframing. Sleep issues remain and appear to be impacting pt more currently. Recently met with PCP and sleep study was ordered. Plan is to discharge in 2 weeks. Plan is to continue with IOP to maintain gains. Time Stopped:: 10:00
== END 2020-11-25 23:59 ==
LOC: BHIOP 09:00
PROVIDERS: PCP Nurse Practitioner Family; Referring Provider Psychiatry & Neurology Psychiatry; Visit Provider Psychiatry & Neurology Psychiatry
DX: F33.2 Major depressive disorder, recurrent severe without psychotic features (principal); F41.1 Generalized anxiety disorder; F60.3 Borderline personality disorder; Z79.899 Other long term (current) drug therapy
CPT/HCPCS: 99214; H0035; H2012; H2020; 90834

== ENCOUNTER → 2020-11-08 15:40 | Outpatient (CLI) | payer MEDICAID, SELFPAY ==
[2020-10-03 09:18] VITALS: BMI 22.9
[2020-11-08 16:37] LABS: Hematocrit 37.3 % (37-47); Hemoglobin 11.8 g/dL (12.0-15.0); Mean Corp Hgb Conc 31.6 g/dL (32-36); Mean Corpuscular Volume 82.2 fL (81-99); Platelet Count 298 K/mm3 (150-450); RBC Distribution Width SD 38.9 fl (35.1-43.9); Red Blood Count 4.54 M/mm3 (4.2-5.4); White Blood Count 7.2 K/mm3 (4.4-11.0)
[2020-11-08 17:13] LABS: Prolactin 4.1 ng/mL; T4 Free Direct 1.02 ng/dL (0.76-1.46); Thyroid Stim Hormone (TSH) 1.83 uIU/mL (0.358-3.74)
== END ==
PROVIDERS: PCP Nurse Practitioner Family; Visit Provider Obstetrics & Gynecology
DX: N93.9 Abnormal uterine and vaginal bleeding, unspecified (principal)
CPT/HCPCS: 36415; 84146; 84439; 84443; 85027

== ENCOUNTER 2020-11-29 09:00 | Outpatient (RCR) | payer MEDICAID, SELFPAY ==
[2020-11-21 09:05] VITALS: BMI 23.1
[2020-11-26 00:35] VITALS: BP 140/92; PULSE 92
--- NOTE | 2020-11-29 10:08 | BH.SGPN.GN ---
Behaviors/Verbalizations/Mental Status: []Client alert and oriented, neatly dressed and groomed. Eye contact fair. Motor activity appropriate. Speech within normal limits. Affect constricted, mood anxious. Thoughts linear, logical, no signs of hallucinations or delusions Client Response/Progress/Benefit: []Client was an engaged participant AEB client providing input throughout discussion and listening attentively to others. Client shared current reality as ?my head blowing up with stress? due to unwanted wedding planning. Client's realistic, desired reality is have an intimate wedding with her and family. Client reports belief she is close to her desired reality and plans to communicate with her fianc?. Group discussed common barriers that keep people stuck to include stigma, upbringing, self-comparison, lack of self-care, and negative thinking. Benefited from group as client was able to identify current and desired mental health state and increase awareness of how barriers can impact progress. Client to continue IOP tx to reinforce healthy coping skills and further improve functioning. Narrative Note: []
--- NOTE | 2020-11-29 11:05 | BH.SGPN.GN ---
Behaviors/Verbalizations/Mental Status: []Client alert and oriented, neatly dressed and groomed. Eye contact good. Motor activity appropriate. Speech within normal limits. Affect constricted, mood agitated. Thoughts linear, logical, no signs of hallucinations or delusions. Client Response/Progress/Benefit: []Client was an active participant in group discussion and activity. Engaged during activity and provided ideas on how to cope with internal barriers that keep clients stuck from moving towards goals. Barriers identified by client included: unrealistic expectations of self and others, obligation, and avoidance. Strategies identified for overcoming these barriers included: thought challenging, verbalizing needs with supports, opposite action, and adjusting expectations. Client reported she wants to work on overcoming her barrier of unrealistic expectations by explaining her needs and concerns calmy to her partner. Benefited from group by identifying obstacles and solutions to desired reality. Client has been showing progress with increasing self-care and reducing crying spells. Will continue IOP tx to further improve emotional regulation skills and establish aftercare. Narrative Note: []
--- NOTE | 2020-12-07 09:00 | BH.SGPN.GN ---
Behaviors/Verbalizations/Mental Status: []Client alert and oriented, casually dressed. Eye contact fair. Motor activity appropriate. Speech within normal limits. Affect incongruent AEB laughter while discussing stressors, mood irritable and anxious. Thoughts linear, logical, no signs of hallucinations or delusions. Reviewed client?s symptom tracker, no risk or plan for suicide ideation, plan, or intent as of 12/07/20. Client Response/Progress/Benefit: []Client responded well to session, engaged throughout and participated in group discussion. Client reported feeling ?good? this morning. Client reported feeling excited for her wedding this weekend and felt more prepared than before. Stated her stressor as having no communication with her ex- which makes it difficult to co-parent. Overall client said she feels that her stressors are smaller and more manageable. Progress noted as client reports feeling in control of stressors as well as practicing healthy coping skills. For example, client shared she deleted social media to decrease stress and anxiety. Client will discharge as she no longer meets criteria for IOP level of care. Narrative Note: []
--- NOTE | 2020-12-07 11:05 | BH.SGPN.GN ---
Behaviors/Verbalizations/Mental Status: []Client alert and oriented, neatly dressed and groomed. Eye contact good. Motor activity appropriate. Speech within normal limits. Affect congruent, mood euthymic. Thoughts linear, logical, no signs of hallucinations or delusions. Client Response/Progress/Benefit: []Client responded well to session AEB taking notes and actively participating. Client contributed during psychoeducation on the change process and different emotions in each stage of change. Client also contributed during the activity. Client identified a change client would like to make to improve mental health which was to ?find and call a new therapist.? Client reports belief she is in the preparation stage of this change as client has found the therapist, but client still needs to make the call. Client stated ?I was told I wouldn?t do it, so of course now I have to.? Client contributed during group discussion on using a decisional balance tool to promote change. Appeared to benefit from identifying what stage of change client is in and creating a small goal. Will discharge from IOP tx today as client has made great strides and no longer meets criteria for IOP level of care. Narrative Note: []
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
--- NOTE | 2020-12-07 13:51 | BH.MDN_ITS ---
Multi-Disciplinary Note - Note 45-min Individual Time Started:: 10:30 Date: 12/07/20 Purpose of session/treatment goals addressed:: Reviewed progress and current symptoms. Completed DSM-5 cross cutting scales. Discussed treatment goals and aftercare. Eye Contact:: Good Motor Activity:: Appropriate Appearance:: Casual Speech:: Appropriate Mood:: Euthymic Affect:: Full Thoughts:: Linear, Logical, No evidence of hallucinations/delusions noted Staff Interventions:: Reviewed treatment plan goals and praised pt for her significant efforts. Client Response:: Pt reports that she is feeling great. Reports decreased anxiety, depression, and feels that her mood is more stable. She recently decreased her caffiene use and has noticed that her sleep is much improved. Able to make it through work w/o getting drowsy and is not sleeping 12 plus hours a day. She has plans to get in July to her long-time fiance. Feels that she is better managing the drama around her as she is choosing not to engage. Events of situations that were causing significant anxiety and stress in the past do not present as overhwhelming currently. Utilizing skills which include thought stopping and challenging. Risks/Concerns:: none noted. Progress Toward Goals/Plan:: Pt had inconsistent attendance while in the IOP program. This was mainly related to her work and sleep schedules. Overall IOP staff were motivated to continue to help despite attendance issues. Siginificant progress noted since treatment plan review. According to DSM-5 cross cutting scales pt had a 65% reduction in symptoms since 11/07/20. She reports improve mood, decreased depression, decreased anxiety, and overall her sleep has improve dramatically. Medication compliant. Feels that medication changes have been he lpful. According to DSM-5 scales pt showed a 60% reduction in depression, 75% reduction in anger, 50% reduction in anxiety, and 50% reduction in sleeping issues. Pt reports that she has drastically reduced her caffiene intake at the request of psychiatrist and her both her energy at home and work have improved. She is able to identify several coping skills and strategies to help with negative thoughts which she is utilizing on consistent basis. Improved communication with spouse. Appears to have responded well to treatment. Plan is to discharge from [facility]. Time Stopped:: 11:15
== END 2020-12-07 13:50 | disposition home or self-care (01) ==
LOC: BHIOP 09:00
PROVIDERS: PCP Nurse Practitioner Family; Referring Provider Psychiatry & Neurology Psychiatry; Visit Provider Psychiatry & Neurology Psychiatry
DX: F33.2 Major depressive disorder, recurrent severe without psychotic features (principal)
CPT/HCPCS: H0035; H2012; 90834

== ENCOUNTER 2021-11-24 07:19 | Emergency (ER) | payer MEDICAID, SELFPAY ==
[2021-11-24 07:20] VITALS: BP 147/100; PULSE 95; RESP 16; TEMP 36.2; O2SAT 100; BMI 21.4
--- NOTE | 2021-11-24 07:53 | EDS_ITS ---
HPI History of Present Illness Chief Complaint: Dental Informant: patient Narrative Narrative: 31-year-old female presents to the emergency room with dental pain. Patient states that her pain started yesterday around noon. She states that she feels that her On her lower left posterior most molar is lifting up and it straight nerve pain. She denies any facial swelling. She states that she does not know what to do. [facility] Medical History (Updated 11/24/21 @ 07:[address] Roberto Martinez DO) Borderline personality disorder Generalized anxiety disorder History of kidney stones Major depressive disorder, recurrent severe without psychotic features Stomach ulcer Home Medications pantoprazole 40 mg tablet,delayed release 40 mg PO DAILY #90 tab 01/24/21 [Rx Last Taken Unknown] vilazodone 10 mg tablet 10 mg PO DAILY #30 tab 09/30/21 [Rx Last Taken Unknown] oxycodone-acetaminophen 1 tab PO Q6H PRN PRN 3 Days #12 tablet 11/24/21 [Rx Last Taken Unknown] Allergy/AdvReac Type Severity Reaction Status Date / Time acetaminophen [From Vicodin] Allergy Unknown Vomiting Verified 08/12/21 15:10 hydrocodone [From Vicodin] Allergy Unknown Vomiting Verified 08/12/21 15:10 CONTROL Allergy Hives Uncoded 08/12/21 15:10 Family History Mother Diabetes Surgical History History of 3 sections History of tubal ligation Social History Smoking Status: Current every day smoker tobacco type: cigarettes Tobacco: How many years used: 10 how long ago did patient quit smokin alcohol intake: current alcohol intake frequency: holidays/special occasions only substance use type: does not use what type of physical activity do you participate in: none frequency: 3-4 times per week ROS ROS ED Constitutional Constitutional ED: Denies chills, fever(s) or weight loss Eyes Eyes: Denies change in vision or diplopia ENT ENT ED: Reports other Details: Dental pain ; Denies ear pain, rhinorrhea or sore throat Cardiovascular Cardiovascular: Denies chest pain, orthopnea, palpitations or racing heartbeat Respiratory/Chest Respiratory/Chest: Denies cough, dyspnea or orthopnea Gastrointestinal Gastrointestinal: Denies abdominal pain, diarrhea, nausea or vomiting Genitourinary Genitourinary ED: Denies dysuria, hematuria or urinary frequency Musculoskeletal Musculoskeletal: Denies arthralgias or myalgias Integumentary Denies abscess or rash Neurologic Neurologic: Denies headache(s) or weakness Psychiatric Psychiatric: Denies anxiety, depression, suicidal ideation or suicidal thoughts Endocrine Endocrinology: Denies polydipsia, polyphagia or polyuria Allergic/Immunologic Allergic/Immunologic ED: Denies mouth swelling, tongue swelling or urticaria EXAM Physical Exam Narrative Exam Narrative: Patient is holding her jaw and rocking back and forth in the bed Const Vital Signs: 11/24/21 07:20 Temperature 97.2 F L Temperature Source Temporal Pulse Rate 95 Respiratory Rate 16 Blood Pressure 147/100 H Blood Pressure Mean 115 Pulse Ox 100 Oxygen Delivery Method Room Air Positive well nourished and well developed General Appearance ED: well developed HEENT Reports normocephalic, head/scalp atraumatic, TM's clear and moist mucous me mbranes HEENT Narrative: The tooth that the patient's points to the second lower left molar. This has a cap on it. There is no swelling along the gumline. There is no swelling externally along the mandible or erythema. Negative for trauma Tympanic Membrane ED: Yes TM's clear Mouth ED: Yes oral and palatal mucosa normal, Yes lips normal, Yes tongue normal, Yes salivary gland normal and No mouth trauma Mouth: oral and palatal mucosa normal, lips normal, tongue normal, salivary gland normal and No mouth trauma Throat: posterior oropharynx normal Eyes PERRL and EOMs intact bilaterally Neck no lymphadenopathy, supple and no JVD Resp normal respiratory effort and clear to auscultation bilaterally Cardio regular rate, regular rhythm and no murmurs GI normal to inspection, nondistended, normoactive bowel sounds and non-tender Palpation: soft Back/Spine no CVA tenderness and normal ROM Extremity normal to inspection General Extremety ED: Negative for edema General Extremity: Negative for edema Neuro oriented x3 and CN's II-XII intact bilaterally Sensorium / Orientation: alert Motor Exam: strength 5/5 throughout Psych Mood & Affect: tearful; Negative for depressed Skin no rashes or lesions noted and no wounds MDM MDM MDM Narrative Medical decision making narrative: Advised the patient that she should seek dental care as soon as possible. She may need event that a immediate dent. I will give her a shot of Toradol and pain medication at home. I did review her OARRS. Discharge Plan Triage Chief Complaint: Dental ED Provider: Roberto Martinez Dx/Rx/DC Orders Clinical Impression: Pain, dental Instructions: ED Dental Pain Prescriptions: New oxycodone-acetaminophen [oxycodone-acetaminophen] 1 TABLET tablet 1 tab PO Q6H PRN PRN (Reason: Pain) 3 Days Qty: 12 RF: 0 No Action pantoprazole 40 mg tablet,delayed release (DR/EC) 40 mg PO DAILY Qty: 90 RF: 1 vilazodone 10 mg tablet 10 mg PO DAILY Qty: 30 RF: 1 Primary Care Provider: Jennifer Cox Referrals: Jennifer Cox MD [Primary Care Provider] - Activity Restrictions/Additional Instructions: You need to see a dentist as soon as possible. Disposition Disposition: Home, Self Care
[2021-11-24] MEDS: Ketorolac 60 MG/2 ML Vial IM (07:56)
== END 2021-11-24 08:23 | disposition home or self-care (01) ==
PROVIDERS: Emergency Provider Emergency Medicine; PCP Internal Medicine; Visit Provider Emergency Medicine
DX: K08.89 Other specified disorders of teeth and supporting structures (principal); F60.3 Borderline personality disorder; F33.2 Major depressive disorder, recurrent severe without psychotic features; F41.1 Generalized anxiety disorder; F17.210 Nicotine dependence, cigarettes, uncomplicated; Z87.442 Personal history of urinary calculi; Z79.899 Other long term (current) drug therapy
CPT/HCPCS: 96372; 99282

== ENCOUNTER 2022-01-10 10:11 | Outpatient (CLI) | payer MEDICAID, SELFPAY ==
[2022-01-10 10:13] LABS: Bacteria 0 SEEN /hpf (None Seen); Mucous, Urine 0 SEEN /hpf (<or=2+); Red Blood Cells-Urine 0 SEEN /hpf (0-5)
[2022-01-10 12:21] LABS: Absolute Lymphocyte Count 2.16 X10^3/uL (0.83-4.51); Absolute Neutrophil Count 19.5 X10^3/uL (2.0-7.7); Basophil# 0.07 X10^3/uL; Basophil% 0.3 % (0-1); Hemoglobin 10.9 g/dL (12.0-15.0); Lymphocyte # 2.16 X10^3/ul (0.83-4.51); Lymphocyte % 9.2 % (19-41); Mean Corp Hgb Conc 32.1 g/dL (32-36); Mean Corpuscular Hgb 25.8 pg (27.0-32.0); Mean Corpuscular Volume 80.6 fL (81-99); Mean Platelet Vol. 9.6 fl (6.2-12.0); Monocyte# 1.54 X10^3/uL; Monocyte% 6.5 % (0-10); NRBC Flagged by Analyzer 0 % (0-5); Neutrophil # 19.51 X10^3/uL (2.7-7.7); Neutrophil % 82.9 % (47-70); POSITIVE DIFFERENTIAL YES; Platelet Count 520 K/mm3 (150-450); RBC Distribution Width CV 15.2 % (11.6-14.6); RBC Distribution Width SD 44.1 fl (35.1-43.9); Red Blood Count 4.22 M/mm3 (4.2-5.4); White Blood Count 23.5 K/mm3 (4.4-11.0)
[2022-01-10 12:25] LABS: Color, Urine Yellow (Yellow); Glucose, Dipstick Normal (Normal); Ketone-Dipstick 15 mg/dl (Negative); Leukocyte Esterase-Dipstick 25 /ul (Negative); Nitrite-Dipstick Negative (Negative); Occult Blood-Urine 10 /ul (Negative); Protein-Dipstick Negative (Negative); Specific Gravity, Urine 1.005 (1.002-1.030); Urine Bilirubin Dipstick Negative (Negative); Urine Clarity Clear (Clear); Urine Urobilinogen Normal (Normal)
[2022-01-10 12:38] LABS: Squamous Epithelial Cells - UA 0-5 SEEN /hpf (5-10); White Blood Cells 0-5 SEEN /hpf (0-5)
[2022-01-10 12:39] LABS: Internal QC Validated? YES +Cl - CLEAR BKGD; Pregnancy, Urine Negative Negative
[2022-01-10 12:43] LABS: Vitamin B12 335 pg/mL (211-911); Vitamin D,25 Hydroxy 29.3 ng/mL
[2022-01-10 12:48] LABS: ALB/GLOB Ratio 0.7 RATIO (0.9-2.4); AST(SGOT) 8 U/L (15-37); Alanine Aminotransfer ALT/SGPT 18 U/L (13-56); Albumin, Serum 3.3 g/dL (3.2-5.0); Alkaline Phosphatase 75 U/L (45-117); Anion Gap 6 (5-15); BUN 13 mg/dL (7-18); BUN/Creat Ratio 14.2 RATIO (10-20); Calcium,Total 8.9 mg/dL (8.5-10.1); Chloride 101 mmol/L (98-107); Creatinine, Serum 0.92 mg/dL (0.55-1.02); EST Glomerular Filtration Rate 75 mL/min (>60); Est Glom Filt Rate - Afr Amer 90 mL/min (>60); Globulin 4.5 g/dL (2.2-4.2); Glucose 108 mg/dL (74-106); Potassium 3.8 mmol/L (3.5-5.1); Protein, Total 7.8 g/dL (6.4-8.2); Sodium Level 133 mmol/L (136-145); Thyroid Stim Hormone (TSH) 0.86 uIU/mL (0.358-3.74)
[2022-01-10 13:03] LABS: Differential Indicated SCAN CRITERIA MET
[2022-01-10 13:06] LABS: Platelet Estimate MOD INC (ADEQ); Red Cell Morphology NORM C+C NORMAL (NORM C&C)
[2022-01-13 14:33] LABS: Pathologist Review Reviewed
== END 2022-01-10 23:59 | disposition home or self-care (01) ==
LOC: BIMLAB 10:12
PROVIDERS: PCP Internal Medicine; Referring Provider Nurse Practitioner Family; Visit Provider Nurse Practitioner Family
DX: R10.9 Unspecified abdominal pain (principal); D64.9 Anemia, unspecified; R53.83 Other fatigue; D72.829 Elevated white blood cell count, unspecified; E56.9 Vitamin deficiency, unspecified
CPT/HCPCS: 36415; 80053; 81001; 81025; 82306; 82607; 84443; 85025; 86140; 87086; 87088

== ENCOUNTER → 2022-05-03 | Outpatient (CLI) | payer MEDICAID, SELFPAY ==
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
--- NOTE | 2022-05-03 09:56 | RAD_ITS ---
EXAM: XR RIGHT FOOT COMPLETE, 3 OR MORE VIEWS CLINICAL INDICATION: right mtp pain TECHNIQUE: Frontal, lateral and oblique views of the right foot. This report was created using [employer] report generation technology. COMPARISON: None. FINDINGS: BONES/JOINTS: Unremarkable. No acute fracture. No subluxation. Normal alignment. Preservation of the joint space. No sclerotic or destructive changes observed. SOFT TISSUES: Unremarkable. No soft tissue swelling or gas. No radiopaque foreign body. RAD/Foot min 3 Views IMPRESSION: Negative right foot x-rays. Electronically Signed: Bobby Bone MD at 15:22 EDT ,
--- NOTE | 2022-05-03 09:56 | RAD_ITS ---
EXAM: XR RIGHT ELBOW COMPLETE, 3 OR MORE VIEWS CLINICAL INDICATION: fall on elbow, limited rom TECHNIQUE: Frontal, lateral and oblique views of the right elbow. This report was created using [employer] report generation technology. COMPARISON: None. FINDINGS: BONES/JOINTS: Fracture of the radial head with impaction. There is no displacement of the anterior or posterior fat pads. Preservation of the joint space. No destructive or sclerotic lesions. SOFT TISSUES: Unremarkable. No soft tissue swelling or gas. No radiopaque foreign body. OTHER FINDINGS: Anterior fat-pad sign. RAD/Elbow min 3 Views IMPRESSION: 1. Fracture of the radial head with impaction. 2. Anterior fat-pad sign. Electronically Signed: Bobby Bone MD at 15:20 EDT ,
== END | disposition home or self-care (01) ==
LOC: RAD 09:44
PROVIDERS: PCP Internal Medicine; Visit Provider Physician Assistant
DX: S52.121A Displaced fracture of head of right radius, initial encounter for closed fracture (principal); M25.571 Pain in right ankle and joints of right foot; M25.521 Pain in right elbow; T14.90XA Injury, unspecified, initial encounter; M79.631 Pain in right forearm
CPT/HCPCS: 73080; 73090; 73630

== ENCOUNTER → 2025-07-05 | Outpatient (CLI) | payer BC, MEDICAID, SELFPAY ==
--- NOTE | 2025-07-05 10:16 | RAD_ITS ---
PROCEDURE: CHEST PA AND LATERAL 07/05/2025 REASON FOR EXAM: ACUTE RESP INFECTION TECHNIQUE: Procedure Code: RADCXR Modality: DX Procedure: CHEST PA AND LATERAL COMPARISON: None. RAD/Chest PA and Lateral IMPRESSION: Lungs appear clear of acute disease. No pleural effusion or pneumothorax is seen. The cardiomediastinal silhouette is within the normal range. Minimal thoracic spine degenerative changes are seen. No acute osseous process is noted. Reading Location: [place] [id number]
--- NOTE | 2025-07-05 10:17 | RAD_ITS ---
PROCEDURE: CERV SPINE 4 OR 5 VIEWS 07/05/2025 REASON FOR EXAM: CERVICALGIA TECHNIQUE: Procedure Code: RADSPC Modality: DX Procedure: CERV SPINE 5 VIEWS, including bilateral oblique views. COMPARISON: None RAD/Cerv Spine 4 or 5 Views IMPRESSION: Straightening of the cervical spine is seen, which may be due to positioning or muscle spasm. Minimal degenerative disc disease is most apparent at the C5-C6 level, but no s ignificant disc narrowing is appreciated at this time. Oblique views demonstrate no evidence of osseous neural foraminal narrowing, an d no more than minimal uncovertebral joint hypertrophy is identified. No fracture, subluxation, or prevertebral soft tissue swelling. Reading Location: [facility]
== END | disposition home or self-care (01) ==
PROVIDERS: PCP Nurse Practitioner Family; Referring Provider Nurse Practitioner Family; Visit Provider Nurse Practitioner Family
DX: J06.9 Acute upper respiratory infection, unspecified (principal); M54.2 Cervicalgia
CPT/HCPCS: 71046; 72050

== ENCOUNTER → 2025-07-11 | Outpatient (CLI) | payer BC, MEDICAID, SELFPAY ==
[2025-07-11 15:06] LABS: HIV Nonreactive (Nonreactive); Syphilis Antibodies Nonreactive (Nonreactive)
[2025-07-13 05:07] LABS: HEPATITIS B SURFACE AG Negative (Negative); Hep C Antibodies Non Reactive (Non Reactive)
== END | disposition home or self-care (01) ==
LOC: LAB 13:29
PROVIDERS: PCP Nurse Practitioner Family
DX: Z72.51 High risk heterosexual behavior (principal)
CPT/HCPCS: 36415; 80074; 86703; 86780; 87491; 87591; 87661